=== PATIENT | female | born 1970 | race Caucasian/White ===

== ENCOUNTER 2019-10-16 08:56 | Emergency (ER) | payer BC, MEDICAID ==
[~2019-10-16] VITALS: Ht 172.7 cm; Wt 79.0 kg
[2019-10-16] MEDS ORDERED: ketorolac tromethamine 15mg/ml inj. IV ONE (09:30)
[2019-10-16] MEDS ORDERED: normal saline 1000ML IV soln IVB ONE (09:30)
[2019-10-16 09:52] LABS: BASOPHILS % (AUTO) 0.7 % (0-1); EOSINOPHILS # (AUTO) 0.4 X10'3 (0-0.9); EOSINOPHILS % (AUTO) 5.8 % (0-6); HEMATOCRIT 38.5 % (35.0-45.0); HEMOGLOBIN 12.8 g/dl (12.0-16.0); LYMPHOCYTES # (AUTO) 1.5 X10'3 (1.1-4.8); LYMPHOCYTES % (AUTO) 22.9 % (21-51); MEAN CORPUSCULAR HEMOGLOBIN 30.7 PG (27.0-31.0); MEAN CORPUSCULAR HGB CONC 33.3 g/dL (33.0-36.5); MEAN CORPUSCULAR VOLUME 92.4 FL (78-98); MEAN PLATELET VOLUME 7.7 FL (7.4-10.4); MONOCYTES # (AUTO) 0.4 X10'3 (0-0.9); MONOCYTES % (AUTO) 6.5 % (2-12); NEUTROPHILS # (AUTO) 4.3 X10'3 (1.8-7.7); NEUTROPHILS % (AUTO) 64.1 % (42-75); PLATELET COUNT 293 X10'3 (140-440); RED BLOOD COUNT 4.17 X10'6 (4.20-5.60); WHITE BLOOD COUNT 6.7 X10'3 (4.5-11.0)
[2019-10-16 10:01] LABS: URINE HCG NEGATIVE (NEG)
[2019-10-16 10:03] LABS: CLARITY,URINE CLEAR (Clear); COLOR,URINE ORANGE (Yellow)
[2019-10-16 10:17] LABS: ALANINE AMINOTRANSFERASE 17 U/L (12-78); ALBUMIN 3.7 G/DL (3.4-5.0); ALKALINE PHOSPHATASE 48 IU/L (46-116); ANION GAP 6 (8-16); ASPARTATE AMINO TRANSFERASE 17 U/L (10-37); BILIRUBIN,TOTAL 0.4 MG/DL (0.1-1.0); BLOOD UREA NITROGEN 12 MG/DL (7-18); BUN/CREATININE RATIO 12.9 (6.6-38.0); CALCIUM 8.6 MG/DL (8.5-10.1); CHLORIDE 106 MMOL/L (99-107); CREATININE 0.93 MG/DL (0.40-0.90); GLUCOSE 94 MG/DL (70-104); LIPASE 89 U/L (73-393); SODIUM 140 MMOL/L (135-145); TOTAL CARBON DIOXIDE 28.5 MMOL/L (24-32); TOTAL PROTEIN 7.3 G/DL (6.4-8.2); eGFR 65 ML/MIN
[2019-10-16 10:18] LABS: UA COLLECTION TYPE CLN CATCH MIDSTREAM
[2019-10-16 10:19] LABS: BACTERIA,URINE NONE SEEN /HPF (Neg); MUCUS STRANDS NONE SEEN /LPF (Neg); SQUAMOUS EPITHELIAL CELL,UR FEW /LPF (FEW); WBC,URINE 0-4 /HPF (0-4)
[2019-10-16] MEDS ORDERED: acetaminophen 325mg tablet PO ONE (11:20)
[2019-10-16] MEDS ORDERED: HYDR-4383 PO (11:34)
[2019-10-16] MEDS ORDERED: FLO0.4C PO (11:34)
[2019-10-16] MEDS ORDERED: ONDA4TAB6 PO (11:34)
[2019-10-16 11:49] VITALS: BP 111/57
== END 2019-10-16 11:51 | disposition home or self-care (01) ==
LOC: ER 08:56
DX: N20.1 Calculus of ureter (principal); R11.2 Nausea with vomiting, unspecified; Z90.49 Acquired absence of other specified parts of digestive tract; Z98.890 Other specified postprocedural states; Z88.0 Allergy status to penicillin; Z79.899 Other long term (current) drug therapy
CPT/HCPCS: 36415; 74176; 80053; 81001; 81025; 83690; 85025; 96374; 99284; J1885; J7030

== ENCOUNTER 2021-04-03 21:15 | Emergency (ER) | payer BC, OTHER ==
[~2021-04-03] VITALS: Ht 17.8 cm; Wt 92.5 kg
[~2021-04-03 21:15] MED LIST: HYDR-4383 PO; ONDA4TAB6 PO
[2021-04-03 21:36] VITALS: BP 133/61
[2021-04-03 21:58] LABS: CLARITY,URINE SLIGHTLY CLOUDY (Clear); GLUCOSE, URINE NEGATIVE (Neg); KETONES,URINE NEGATIVE (Neg); LEUKOCYTE ESTERASE ,URINE SMALL (Neg); NITRITES, URINE NEGATIVE (Neg); OCCULT BLOOD,URINE TRACE-INTACT (Neg); PH,URINE 6.5 (4.8-8.0); PROTEIN,URINE NEGATIVE (Neg); UROBILINOGEN,URINE 0.2 E.U/dL (0.2-1.0)
[2021-04-03 22:00] LABS: COLOR,URINE STRAW (Yellow); UA COLLECTION TYPE CLN CATCH MIDSTREAM
[2021-04-03 22:14] LABS: BACTERIA,URINE 1+ /HPF (Neg); MUCUS STRANDS MODERATE /LPF (Neg); SQUAMOUS EPITHELIAL CELL,UR FEW /LPF (FEW)
[2021-04-03 22:15] LABS: RBC,URINE 0-2 /HPF (0-2)
[2021-04-03] MEDS ORDERED: CEPH250T PO (23:55)
[2021-04-03] MEDS ORDERED: cephalexin 500mg capsule PO ONE (23:55)
[2021-04-03] MEDS ORDERED: PHEN-824 PO (23:55)
[2021-04-03] MEDS ORDERED: phenazopyridine 100mg tablet PO ONE (23:55)
== END 2021-04-04 00:05 | disposition home or self-care (01) ==
LOC: ER 21:15
DX: N39.0 Urinary tract infection, site not specified (principal); R53.83 Other fatigue; R11.2 Nausea with vomiting, unspecified; R39.15 Urgency of urination; R19.7 Diarrhea, unspecified; R10.84 Generalized abdominal pain; R30.0 Dysuria; Z87.442 Personal history of urinary calculi; Z90.49 Acquired absence of other specified parts of digestive tract; Z98.890 Other specified postprocedural states; Z88.0 Allergy status to penicillin; Z79.2 Long term (current) use of antibiotics; Z79.899 Other long term (current) drug therapy
CPT/HCPCS: 81001; 87077; 87088; 87186; 99283